=== PATIENT | female | born 1990 | race African-American/Black ===

== ENCOUNTER 2021-10-23 04:37 | Emergency (ER) | payer MEDICAID ==
[~2021-10-23] VITALS: Ht 172.7 cm; Wt 68.0 kg
[2021-10-23] MEDS ORDERED: IBUPROFEN 600MG TABLET PO ONE (06:45)
[2021-10-23] MEDS ORDERED: MORPHINE SULFATE 10 MG/ML CPJ IM ONE (08:15)
[2021-10-23] MEDS ORDERED: LORAZEPAM 1MG TABLET PO ONE (09:00)
[2021-10-23] MEDS ORDERED: IBUP-2029 MT (10:18)
[2021-10-23 10:38] VITALS: BP 116/76
== END 2021-10-23 10:40 | disposition home or self-care (01) ==
LOC: ER 04:37
DX: S43.085A Other dislocation of left shoulder joint, initial encounter (principal); X58.XXXA Exposure to other specified factors, initial encounter; Y93.89 Activity, other specified; Y92.89 Other specified places as the place of occurrence of the external cause; Y99.8 Other external cause status
CPT/HCPCS: 23650; 73030; 96372; 99284; J2270